=== PATIENT | female | born 1995 | race Caucasian/White ===

== ENCOUNTER 2022-01-06 02:22 | Inpatient (IN) | payer BC ==
[2022-01-06] MEDS ORDERED: Docusate 100 MG CAP PO PRN (02:30)
[2022-01-06] MEDS ORDERED: Lidocaine 1% (PF) 30 ML VIAL SC PRN ×2 (02:30→14:12)
[2022-01-06] MEDS ORDERED: hydrALAZINE 20 MG/ML VIAL SLOW IVP PRN ×2 (02:30→14:12)
[2022-01-06] MEDS ORDERED: Zolpidem Tartrate 5 MG TAB PO PRN (02:30)
[2022-01-06] MEDS ORDERED: Promethazine HCl 25 MG/ML VIAL IM PRN ×2 (02:30→14:12)
[2022-01-06] MEDS ORDERED: Butorphanol Tartrate 1 MG/ML VIAL SLOW IVP PRN (02:30)
[2022-01-06] MEDS ORDERED: Ondansetron PF 4 MG/2 ML Vial IVP PRN ×2 (02:30→14:12)
[2022-01-06] MEDS ORDERED: Acetaminophen 500 MG TAB PO PRN ×2 (02:36→14:12)
[2022-01-06 02:42] VITALS: BMI 32.9
[2022-01-06 03:31] LABS: Syphilis Antibody Nonreactive (Nonreactive); Syphilis Antibody Index 0.05 S/CO (<1.00 Non-Reactive)
[2022-01-06] MEDS ORDERED: Bupivacaine 0.25% HCL 30 ML VIAL ONE (06:00)
[2022-01-06] MEDS ORDERED: ePHEDrine Sulfate 50 MG/10 ML VIAL ONE (06:00)
[2022-01-06 06:04] LABS: SARS-CoV-2 NAA Rapid Test Not Detected (NotDetected)
[2022-01-06] MEDS ORDERED: Misoprostol 200 MCG TAB PR PRN (14:12)
[2022-01-06] MEDS ORDERED: Diphenoxylate HCl/Atropine Tablet PO PRN ×2 (14:12)
[2022-01-06] MEDS ORDERED: Ibuprofen 800 MG TAB PO PRN (14:12)
[2022-01-06] MEDS ORDERED: Carboprost 250 MCG/ML AMP IM PRN (14:12)
[2022-01-06] MEDS ORDERED: Fentanyl 100 MCG/2 ML VIAL SLOW IVP PRN (14:12)
[2022-01-06] MEDS ORDERED: HYDROcodone/Acetaminophen 5/325 mg Tablet PO PRN ×2 (14:12)
[2022-01-06] MEDS ORDERED: NS w/ Oxytocin 30 units 500 ML IV SCH ×2 (14:15)
[2022-01-06 17:02] LABS: Hemoglobin 11.7 g/dL (12.0-15.5); Mean Corpuscular HGB CONC 32.7 g/dL (32.0-36.0); Mean Corpuscular Hemoglobin 30.7 pg (27.0-33.0); Mean Platelet Volume 11.4 fl (7.4-10.4); Platelet Count 176 10x3/uL (150-450); RBC Distribution Width 13.5 % (11.5-14.5); Red Blood Cell (RBC) Count 3.81 10x6/uL (3.90-5.03); White Blood Cell (WBC) Count 15.7 10x3/uL (3.5-10.5)
[2022-01-06 17:22] LABS: Hep B Surf Ag Non-Reactive S/CO (NonReactive); Syphilis Antibody Nonreactive (Nonreactive); Syphilis Antibody Index 0.05 S/CO (<1.00 Non-Reactive)
[2022-01-06 17:35] LABS: HBSAg Index 0.14 S/CO (0-0.99)
[2022-01-07] MEDS ORDERED: Fentanyl 2 mcg/Bup 0.1% Cadd 100 ML ONE ×2 (02:26→10:24)
[2022-01-07] MEDS ORDERED: Naloxone HCl 0.4 mg/ml Vial IVP PRN ×2 (02:29)
[2022-01-07] MEDS ORDERED: ePHEDrine Sulfate 50 MG/10 ML VIAL SLOW IVP PRN (02:29)
[2022-01-07] MEDS ORDERED: Hydrocerin (Eucerin) Cream 120 gm Jar TOP PRN (02:29)
[2022-01-07] MEDS ORDERED: Acetaminophen 325 MG TAB PO PRN (02:29)
[2022-01-07] MEDS ORDERED: Ondansetron PF 4 MG/2 ML Vial IVP PRN (02:29)
[2022-01-07] MEDS ORDERED: diphenhydrAMINE 50 MG/ML VIAL IVP PRN (02:29)
[2022-01-07] MEDS ORDERED: Lactated Ringer's 500 ML IV PRN (02:29)
[2022-01-07] MEDS ORDERED: Promethazine HCl 25 MG/ML VIAL IM PRN (02:29)
[2022-01-07] MEDS ORDERED: Communication Order-Pharmacy FS SCH (02:30)
[2022-01-07] MEDS: Fentanyl 2 mcg/Bupivacaine 0.1% Cassette 100 ML EPIDURAL SCH ×2 (02:54→10:24)
[2022-01-07] MEDS ORDERED: Dexmedetomidine 200 MCG/2 ML VIAL ONE (08:44)
[2022-01-07] MEDS ORDERED: Lidocaine 1% (PF) 30 ML VIAL ONE (08:49)
[2022-01-07] MEDS ORDERED: Bupivacaine 0.25% HCL 30 ML VIAL ONE (09:25)
[2022-01-07] MEDS ORDERED: Fentanyl 100 MCG/2 ML VIAL ONE (10:07)
[2022-01-07] MEDS ORDERED: Milk Of Magnesia 30 ML UDCUP PO PRN (18:34)
[2022-01-07] MEDS ORDERED: Bisacodyl 10 MG SUPP PR PRN (18:34)
[2022-01-07] MEDS ORDERED: diphenhydrAMINE 25 MG CAP PO PRN (18:34)
[2022-01-07] MEDS ORDERED: hydrALAZINE 20 MG/ML VIAL SLOW IVP PRN (18:34)
[2022-01-07] MEDS ORDERED: Preparation H Ointment 28 GM TUBE PR PRN (18:34)
[2022-01-07] MEDS ORDERED: traMADol HCl 50 MG TAB PO PRN ×2 (18:34)
[2022-01-07] MEDS: Lactated Ringer's 1,000 ML IV SCH ×2 (19:15→19:16)
[2022-01-07] MEDS: Misoprostol 100 MCG TAB VAG SCH ×3 (19:16→19:18)
[2022-01-07] MEDS: Ibuprofen 800 MG TAB PO SCH (20:07)
[2022-01-07] MEDS: Docusate 100 MG CAP PO SCH (20:45)
[2022-01-08] MEDS: Ibuprofen 800 MG TAB PO SCH ×3 (04:09→22:01)
[2022-01-08] MEDS: Lactated Ringer's 1,000 ML IV SCH ×4 (11:09→20:21)
[2022-01-08] MEDS: Docusate 100 MG CAP PO SCH ×2 (11:10→22:01)
[2022-01-08] MEDS: Ferrous Sulfate 325 MG TAB PO SCH ×2 (11:10→17:36)
[2022-01-08] MEDS ORDERED: Boostrix 0.5 ML (Tdap) VIAL IM ONE (18:34)
[2022-01-09] MEDS: Ibuprofen 800 MG TAB PO SCH ×2 (05:33→13:05)
[2022-01-09] MEDS: Lactated Ringer's 1,000 ML IV SCH (06:15)
[2022-01-09 07:44] VITALS: BP 123/85; TEMP 98.2
[2022-01-09] MEDS: Ferrous Sulfate 325 MG TAB PO SCH (09:07)
[2022-01-09] MEDS: Docusate 100 MG CAP PO SCH (09:19)
== END 2022-01-09 17:05 | disposition home or self-care (01) | DRG 806 ==
LOC: CSHLD/OP 02:22 → CSHLD 02:37 → CSHPP 01-08 10:53
PROVIDERS: ADMIT Obstetrics & Gynecology; ATTEND Obstetrics & Gynecology
PROC: 10E0XZZ Delivery of Products of Conception, External Approach (ICD-10-PCS; principal; 2022-01-07)
PROC: 0KQM0ZZ Repair Perineum Muscle, Open Approach (ICD-10-PCS; 2022-01-07)
DX: O99.42 Diseases of the circulatory system complicating childbirth (principal); O98.52 Other viral diseases complicating childbirth; Z37.0 Single live birth; Z3A.38 38 weeks gestation of pregnancy; I48.91 Unspecified atrial fibrillation; Z20.822 Contact with and (suspected) exposure to COVID-19; B00.9 Herpesviral infection, unspecified; Z79.899 Other long term (current) drug therapy; Z88.8 Allergy status to other drugs, medicaments and biological substances; K21.9 Gastro-esophageal reflux disease without esophagitis; O99.62 Diseases of the digestive system complicating childbirth; Z82.49 Family history of ischemic heart disease and other diseases of the circulatory system; O70.1 Second degree perineal laceration during delivery
CPT/HCPCS: 36415; 51702; 76819; 80053; 85025; 86780; 86850; 86900; 86901; 87340; 92960; 93005; 93306; 96374; 96375; J2001; J2590; J3010; S0020; U0002